=== PATIENT | female | born 1985 | race Caucasian/White ===

== ENCOUNTER 2017-05-24 15:23 | Emergency (ER) | payer MEDICAID ==
[~2017-05-24] VITALS: Ht 165.1 cm; Wt 57.0 kg
[2017-05-24 15:26] VITALS: BP 97/59
== END 2017-05-25 00:31 | disposition home or self-care (01) ==
LOC: ER 16:42
DX: S16.1XXA Strain of muscle, fascia and tendon at neck level, initial encounter (principal); R51 Headache; R42 Dizziness and giddiness; V49.9XXA Car occupant (driver) (passenger) injured in unspecified traffic accident, initial encounter; Y93.89 Activity, other specified; Y99.8 Other external cause status; Y92.410 Unspecified street and highway as the place of occurrence of the external cause; Z90.49 Acquired absence of other specified parts of digestive tract
CPT/HCPCS: 99281

== ENCOUNTER 2018-12-21 15:45 | Emergency (ER) | payer MEDICAID ==
[~2018-12-21] VITALS: Ht 165.1 cm; Wt 57.0 kg
[2018-12-21 18:14] VITALS: BP 119/69
== END 2018-12-21 18:14 | disposition home or self-care (01) ==
LOC: ER 17:14
DX: N61.0 Mastitis without abscess (principal); Z90.49 Acquired absence of other specified parts of digestive tract; Z98.890 Other specified postprocedural states
CPT/HCPCS: 99283

== ENCOUNTER 2021-01-10 15:32 | Emergency (ER) | payer BC, MEDICAID ==
[~2021-01-10] VITALS: Ht 165.1 cm; Wt 64.0 kg
[2021-01-10 15:52] VITALS: BP 104/70
[2021-01-10] MEDS ORDERED: LIDOCAINE HCL/PF 1% 10 MG/ML 5ML VIAL INFIL ONE (20:15)
[2021-01-10] MEDS ORDERED: ACETAMINOPHEN 325MG TABLET PO ONE (20:15)
[2021-01-10] MEDS ORDERED: BACITRACIN ZINC OINT UDPKT TOP ONE (20:15)
[2021-01-10] MEDS ORDERED: IBUP-2028 MT (20:25)
[2021-01-10] MEDS ORDERED: TETANUS, DIPHTHERIA, PERTUSSIS VAC/PF 0.5ML (>7YR OLD) IM ONE (21:00)
== END 2021-01-10 22:45 | disposition home or self-care (01) ==
LOC: ER 15:32
DX: S61.412A Laceration without foreign body of left hand, initial encounter (principal); S61.217A Laceration without foreign body of left little finger without damage to nail, initial encounter; S61.213A Laceration without foreign body of left middle finger without damage to nail, initial encounter; S61.211A Laceration without foreign body of left index finger without damage to nail, initial encounter; W25.XXXA Contact with sharp glass, initial encounter; Y93.G1 Activity, food preparation and clean up; Y92.010 Kitchen of single-family (private) house as the place of occurrence of the external cause
CPT/HCPCS: 12001; 73130; 81025; 90471; 90715; 99283; A4217; J3490; Z7610